=== PATIENT | female | born 1990 | race Caucasian/White ===

== ENCOUNTER 2024-06-07 21:07 | Emergency (ER) | payer OTHER ==
[~2024-06-07] VITALS: Ht 170.2 cm; Wt 105.3 kg
[~2024-06-07 21:07] MED LIST: ACET500T99 PO; ALBU0.0939 IH; IBUP-2218 PO
[2024-06-07 21:22] VITALS: BP 141/86; PULSE 68; RESP 16; TEMP 97; O2SAT 99
[2024-06-07 21:24] VITALS: BP 141/86; PULSE 68; RESP 16; TEMP 97; O2SAT 99
[2024-06-08] MEDS ORDERED: NAPR-337 PO (00:30)
== END 2024-06-08 00:38 | disposition home or self-care (01) ==
LOC: MED 21:07
DX: S16.1XXA Strain of muscle, fascia and tendon at neck level, initial encounter (principal); S39.012A Strain of muscle, fascia and tendon of lower back, initial encounter; E11.9 Type 2 diabetes mellitus without complications; R51.9 Headache, unspecified; Z79.899 Other long term (current) drug therapy; V89.2XXA Person injured in unspecified motor-vehicle accident, traffic, initial encounter; Y93.89 Activity, other specified; Y92.89 Other specified places as the place of occurrence of the external cause; Y99.8 Other external cause status
CPT/HCPCS: 72050; 72100; 82948; 99284